=== PATIENT | female | born 1965 | race Caucasian/White ===

== ENCOUNTER 2025-01-24 15:06 | Emergency (ER) | payer SELFPAY ==
[2025-01-24 15:10] VITALS: BP 154/77
[2025-01-24 15:26] VITALS: BMI 26.0
[2025-01-24 15:45] LABS: % Basophils 0.8 % (0-2); % Eosinophils 1.3 % (0-6); % Lymphocytes 38.8 % (20.5-51.1); % Monocytes 7.3 % (1.7-9.3); % Neutrophils 51.8 % (42.2-75.2); Absolute Eosinophils 0.1 10^3/uL (0-0.7); Absolute Lymphocytes 2.1 10^3/uL (1.2-3.4); Absolute Monocytes 0.4 10^3/uL (0.1-0.6); Absolute Neutrophils 2.8 10^3/uL (1.4-6.5); Hematocrit 34.2 % (37.0-47.0); Hemoglobin 11.5 g/dL (12.0-16.0); Mean Corp Hgb Conc. 33.6 g/dL (33.0-37.0); Mean Corpuscular Hgb 30.3 pg (27.0-31.0); Mean Corpuscular Volume 90.2 fL (81.0-99.0); Mean Platelet Volume 12.4 fL (7.4-10.4); Nucleated Red Blood Cells % 0 %; Platelet Count 187 10^3/uL (130-400); Red Blood Cell Count 3.79 10^6/uL (4.20-5.40); Red Cell Dist. Width 13.5 % (11.5-14.5); White Blood Cell Count 5.3 10^3/uL (4.8-10.8)
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
[2025-01-24 16:05] LABS: INR 0.98; PT 13.3 Sec (11.4-14.6)
[2025-01-24 16:06] LABS: APTT 25.2 Sec (23.4-35.0)
[2025-01-24 16:09] LABS: ALT (SGPT) 18 U/L (0-35); AST (SGOT) 22 U/L (14-36); Albumin 4.2 g/dl (3.5-5.0); Alkaline Phosphatase 53 U/L (38-126); Blood Urea Nitrogen 20 mg/dl (7-17); Calcium 9.8 mg/dl (8.4-10.2); Carbon Dioxide 25 mmol/L (22-30); Chloride 109 mmol/L (98-107); Estimated Creatinine Clearance 66 ml/min; Glucose 92 mg/dl (70-99); Potassium 3.7 mmol/L (3.5-5.1); Sodium 140 mmol/L (135-145); Total Bilirubin 0.9 mg/dl (0.2-1.3); Total Protein 6.9 g/dl (6.3-8.2); eGFR > 60.00
[2025-01-24 16:32] LABS: Urine Albumin 2+ (Neg - Trace); Urine Bilirubin Negative (Negative); Urine Character Clear (Clear); Urine Color Yellow; Urine Glucose Negative (Negative); Urine Ketone Negative (Negative); Urine Leukocyte Negative (Negative); Urine Nitrite Negative (Negative); Urine Occult Blood 4+ (Negative); Urine Urobilinogen Negative (Neg - 1+)
[2025-01-24 16:43] LABS: Urine Mucus Few
[2025-01-24 16:45] LABS: Urine Bacteria Few (Negative); Urine White Cell 0-2 /HPF (0-5); Urine Yeast Few (Negative)
[2025-01-24 17:35] LABS: Creatine Phosphokinase 146 U/L (30-135)
[2025-01-24 17:39] VITALS: BP 111/72
[2025-01-24 19:24] VITALS: BP 127/67
== END 2025-01-24 19:57 | disposition home or self-care (01) ==
LOC: EMR 15:06
PROVIDERS: Physician Assistant; EMERGENCY PHYSICIAN Emergency Medicine; FAMILY PHYSICIAN Family Medicine
DX: S16.1XXA Strain of muscle, fascia and tendon at neck level, initial encounter (principal); S30.1XXA Contusion of abdominal wall, initial encounter; V89.2XXA Person injured in unspecified motor-vehicle accident, traffic, initial encounter; Y92.410 Unspecified street and highway as the place of occurrence of the external cause
CPT/HCPCS: 99284; 70450; 71260; 72125; 74177; 80053; 81003; 81015; 82550; 85025; 85610; 85730; Q9967